=== PATIENT | female | born 1965 | race Caucasian/White ===

== ENCOUNTER → 2016-10-26 | Outpatient (CLI) | payer BC, OTHER ==
--- NOTE | 2016-10-26 16:27 | REPMRS ---
Patient History The patient states she had a clinical breast exam in 10/2016. Patient is postmenopausal and had first child at age 36. Family history of pancreatic cancer in paternal grandmother. Digital Woman Screen Mammo: October 26, 2016 - Exam #: [id number] Bilateral CC and MLO view(s) were taken. Technologist: Mercedez Huang, Technologist Prior study comparison: September 28, 2015, digital woman screen mammo performed at [facility]. July 22, 2014, digital woman screen mammo performed at [facility]. May 29, 2012, digital woman screen mammo performed at [facility]. FINDINGS: There are scattered fibroglandular densities. There has been no change in the appearance of the mammogram from the prior studies. There is a mild amount of scattered fibroglandular density which is fairly symmetric. There is no interval development of dominant mass, architectural distortion, or clustered microcalcification suggestive of malignancy. ASSESSMENT: BI-RADS/ACR category 1 mammogram. Negative. Recommendation Routine screening mammogram in 1 year (for women over age 40). This mammogram was interpreted with the aid of an FDA-approved computer-aided dectection system. Electronically Signed By: Larry Trevizo MD 10/26/16 [id number]
== END ==
LOC: M WHC 14:50
PROVIDERS: ATTEND Nurse Practitioner Family
DX: Z12.31 Encounter for screening mammogram for malignant neoplasm of breast (principal); Z78.0 Asymptomatic menopausal state

== ENCOUNTER → 2016-10-26 | Outpatient (REF) | payer BC, OTHER | LOC: M SFHCWAGY 15:30 | PROVIDERS: ATTEND Nurse Practitioner Family | DX: Z12.4 Encounter for screening for malignant neoplasm of cervix (principal) ==

== ENCOUNTER → 2017-12-11 | Outpatient (REF) | payer OTHER | LOC: M SFHCCLAY 14:02 | DX: R30.0 Dysuria (principal) ==

== ENCOUNTER → 2018-01-03 | Outpatient (CLI) | payer OTHER | LOC: M WHC 15:21 | DX: Z12.31 Encounter for screening mammogram for malignant neoplasm of breast (principal); N60.31 Fibrosclerosis of right breast; N60.32 Fibrosclerosis of left breast ==

== ENCOUNTER → 2018-06-20 | Outpatient (REF) | payer OTHER | LOC: M SFHCCLAY 11:15 | PROVIDERS: ATTEND Family Medicine | DX: J02.9 Acute pharyngitis, unspecified (principal) ==

== ENCOUNTER → 2018-11-13 | Outpatient (REF) | payer OTHER | LOC: M LAB REF 09:53 | PROVIDERS: ATTEND Physician Assistant | DX: R30.0 Dysuria (principal) ==

== ENCOUNTER → 2019-05-22 | Outpatient (CLI) | payer OTHER ==
--- NOTE | 2019-05-22 15:48 | REPMRS ---
Patient History The patient states she had a clinical breast exam in 2019. Family history of pancreatic cancer in paternal grandmother, colorectal cancer at age 101 in paternal grandfather. No Hormone Replacement Therapy 3D TOMOSYNTHESIS WAS PERFORMED. The [facility] lifetime risk for breast cancer is 11.4%. Digital Woman Screen Mammo: May 22, 2019 - Exam #: [id number] Bilateral CC and MLO view(s) were taken. Technologist: Deirdre Caldwell, Technologist Prior study comparison: January 03, 2018, bilateral digital woman screen mammo performed at [facility]. October 26, 2016, digital woman screen mammo performed at [facility]. FINDINGS: The breast tissue is heterogeneously dense. This may lower the sensitivity of mammography. There has been no change in the appearance of the mammogram from the prior studies. There is a moderate amount of residual fibroglandular tissue which is fairly symmetric. There is no interval development of dominant mass, areas of architectural distortion, or clustered microcalcification typical of malignancy. Assessment: BI-RADS/ACR category 1 mammogram. Negative Mammogram. Recommendation Routine screening mammogram in 1 year (for women over age 40). This mammogram was interpreted with the aid of an FDA-approved computer-aided dectection system. Electronically Signed By: Jaguar Jimenes MD 05/22/19 [id number]
== END ==
LOC: M WHC 13:54
PROVIDERS: ATTEND Nurse Practitioner Family
DX: Z12.4 Encounter for screening for malignant neoplasm of cervix (principal); Z12.31 Encounter for screening mammogram for malignant neoplasm of breast; R87.610 Atypical squamous cells of undetermined significance on cytologic smear of cervix (ASC-US)
CPT/HCPCS: 77063; 77067; 87624; G0123

== ENCOUNTER → 2020-11-09 | Outpatient (REF) | payer OTHER ==
[2020-11-09 11:48] LABS: APPEARANCE, URINE CLOUDY (CLEAR); BACTERIA, URINE AUTO 1+ (NEGATIVE); BILIRUBIN, URINE AUTO NEGATIVE (NEGATIVE); BLOOD, URINE BLOOD NEGATIVE (NEGATIVE); COLOR, URINE YELLOW (YELLOW); GLUCOSE, URINE (UA) AUTO NEGATIVE (NEGATIVE); KETONE, URINE AUTO NEGATIVE (NEGATIVE); LEUKOCYTE ESTERASE, URINE AUTO TRACE (NEGATIVE); MUCUS, URINE SMALL (NEGATIVE); NITRITE, URINE AUTO NEGATIVE (NEGATIVE); PROTEIN, URINE AUTO NEGATIVE (NEGATIVE); RBC, URINE AUTO 2 /HPF (0-3); SPECIFIC GRAVITY URINE AUTO 1.017 (1.002-1.035); SQUAMOUS EPITHELIAL CELL UR AU 9 /HPF (0-6); UROBILINOGEN, URINE AUTO 0.2 mg/dL (0.0-2.0); WBC, URINE AUTO 4 /HPF (0-3)
[2020-11-09 11:50] LABS: BASO # 0.1 10^3/uL (0.0-0.2); BASO % 0.9 % (0.0-1.0); EOS # 0.3 10^3/uL (0.0-0.5); EOS % 3.9 % (0.0-3.0); HEMATOCRIT 46.4 % (36.0-47.0); HEMOGLOBIN 14.6 g/dl (12.0-15.5); LYMPH # 3.1 10^3/uL (1.5-5.0); LYMPH % 47.6 % (24.0-44.0); MEAN CORPUSCULAR HEMOGLOBIN 29.3 pg (27.0-33.0); MEAN CORPUSCULAR HGB CONC 31.5 g/dl (32.0-36.5); MONO # 0.6 10^3/uL (0.0-0.8); MONO % 9.1 % (2.0-8.0); NEUTROPHILS # 2.5 10^3/uL (1.5-8.5); NEUTROPHILS % 38.2 % (36.0-66.0); PLATELET COUNT, AUTOMATED 252 10^3/uL (150-450); RED BLOOD COUNT 4.99 10^6/uL (4.00-5.40); WHITE BLOOD COUNT 6.6 10^3/uL (4.0-10.0)
[2020-11-09 12:06] LABS: ALBUMIN 4.2 GM/DL (3.2-5.2); ALT/SGPT 26 U/L (12-78); BILIRUBIN,TOTAL 0.3 MG/DL (0.2-1.0); BLOOD UREA NITROGEN 15 MG/DL (7-18); CALCIUM LEVEL 8.6 MG/DL (8.5-10.1); CARBON DIOXIDE LEVEL 27 MEQ/L (21-32); CHLORIDE LEVEL 107 MEQ/L (98-107); CHOLESTEROL LEVEL 200 MG/DL (<200); CHOLESTEROL RISK RATIO 3.125 (<5); CREATININE FOR GFR 1.01 MG/DL (0.55-1.30); FREE T4 0.96 NG/DL (0.76-1.46); GLOMERULAR FILTRATION RATE > 60.0 (>51); GLUCOSE, FASTING 96 MG/DL (70-100); HDL CHOLESTEROL 64 MG/DL (>40); LDL CHOLESTEROL 114 MG/DL (<100); NON-HDL-C 136 MG/DL; POTASSIUM SERUM 4.1 MEQ/L (3.5-5.1); SODIUM LEVEL 140 MEQ/L (136-145); TOTAL PROTEIN 7.9 GM/DL (6.4-8.2); TRIGLYCERIDES LEVEL 110 MG/DL (<150)
== END ==
LOC: M SFHCCLAY 07:08
PROVIDERS: ATTEND Nurse Practitioner Family
DX: R82.998 Other abnormal findings in urine (principal); R53.83 Other fatigue; Z12.11 Encounter for screening for malignant neoplasm of colon; Z13.220 Encounter for screening for lipoid disorders

== ENCOUNTER → 2020-12-21 | Outpatient (CLI) | payer OTHER ==
--- NOTE | 2020-12-21 16:56 | REPMRS ---
Patient History The patient states she had a clinical breast exam in 11/2020. Family history of pancreatic cancer in paternal grandmother, colorectal cancer at age 101 in paternal grandfather. No Hormone Replacement Therapy Tomosynthesis is performed. [place] breast density is b. [facility] 10.9%. Patient states no breast complaints today. Patient has signed MRS History Sheet. Digital Woman Screen Mammo: December 21, 2020 - Exam #: [id number] Bilateral CC and MLO view(s) were taken. Technologist: Mercedez Huang, Technologist Prior study comparison: May 22, 2019, bilateral digital woman screen mammo performed at [facility]. January 03, 2018, bilateral digital woman screen mammo performed at [facility]. FINDINGS: There are scattered fibroglandular densities. There has been no change in the appearance of the mammogram from the prior studies. There is a mild amount of residual fibroglandular tissue which is fairly symmetric. There is no interval development of dominant mass, architectural distortion, or clustered microcalcification suggestive of malignancy. Assessment: BI-RADS/ACR category 1 mammogram. Negative Mammogram. Recommendation Routine screening mammogram in 1 year (for women over age 40). This mammogram was interpreted with the aid of an FDA-approved computer-aided dectection system. Electronically Signed By: Jaguar Jimenes MD 12/21/20 [id number]
== END ==
LOC: M WHC 15:46
PROVIDERS: ATTEND Nurse Practitioner Women's Health
DX: Z12.31 Encounter for screening mammogram for malignant neoplasm of breast (principal); Z80.8 Family history of malignant neoplasm of other organs or systems

== ENCOUNTER → 2020-12-21 | Outpatient (REF) | payer OTHER | LOC: M SFHCWAGY 10:12 | PROVIDERS: ATTEND Nurse Practitioner Women's Health | DX: Z12.4 Encounter for screening for malignant neoplasm of cervix (principal); Z77.9 Other contact with and (suspected) exposures hazardous to health | CPT/HCPCS: 87624; G0123 ==

== ENCOUNTER → 2021-02-09 | Outpatient (CLI) | payer OTHER ==
[~2021-02-09] MED LIST: LATA0.0015
== END ==
LOC: M LABSMTC 10:47
PROVIDERS: ATTEND Anesthesiology
DX: Z01.812 Encounter for preprocedural laboratory examination (principal); Z11.52 Encounter for screening for COVID-19

== ENCOUNTER 2021-02-14 08:46 | Day surgery (SDC) | payer OTHER ==
[~2021-02-14] VITALS: Ht 167.6 cm; Wt 63.2 kg
[~2021-02-14 08:46] MED LIST changes: +NS 1,000 ML IV ONE
[2021-02-14] MEDS ORDERED: LIDOCAINE 2% 100MG/5ML SDV (FOR ANES.) As Ordered ONE (08:49)
--- OUTSIDE RECORDS SUMMARY | 2021-02-14 08:49 | CCD | Continuity of Care Document ---
Author Author Jennifer HENLEY Organization Unknown Address [address] [place] [address], [address] [place] [address] Phone [phone] Care Team Providers Care Handle Maker Name Role Phone JeromedavidJulia AUTM Problems Description No Active Problems Social History Type Date Description Comments Sex Unknown ETOH Use 1-2 A Week Tobacco Use Start: Unknown Light tobacco smoker (10 or fewe r cigarettes/day) 4-5 cigs daily Allergies, Adverse Reactions, Alerts Active Allergies Criticality Reaction | Severity Comments Date Amoxicillin Unable to assess criticality 01/03/2021 Medications Active Medications SIG Qnty Indications Ordering Provide r Date Sutab [id number] Tablets take tablets as directed per doctor for bowel prep. 1kit Z12.11 Kaden goins MD 01/03/[address] take 4 tabs by mouth prior to procedure per instructions. 4tabs Z12.11 Kaden Joseph MD 01/03/2021 Latanoprost 0.005% Solution instill one drop in each eye at night time. Unknown Immunizations Description No Information Available Vital Signs Date Vital Result Comment 01/03/2021 3:33pm BP Systolic 104 mmHg BP Diastolic 72 mmHg Height 66 inches 5'6" Weight 142.00 lb BMI (Body Mass Index) 22.9 kg/m2 [place] Body Weight 130 lb Weight 64.411 kg BSA (Body Surface Area) 1.73 m2 Results Description No Information Available Procedures Description No Information Available Medical Devices Description No Information Available Encounters Description No Information Available Assessments Date Code Description Provider 01/03/2021 Z12.11 Encounter for screening for ida gnant neoplasm of colon PEPITO Roach Plan of Treatment 01/03/2021 - PEPITO Roach* Z12.11 Encounter for screening for malignant neoplasm of colon * * New Medication:* Sutab [id number] mg * Dulcolax 5 mg * New Orders:* Colonoscopy, Ordered: 01/03/21 * Comments:* Will arrange for colonoscopy. Reviewed risks and benefits of the procedure, as well as other options, with the patient. Bowel prep procedure was discussed with patient, as well as risks and side effects associated with the bowel prep. Patient verbalized understanding of all of the above and is in agreement to proceed. Patient will seek medical attention for any acute changes. Will monitor. * Follow up:* As scheduled, sooner if needed. Functional Status Description No Information Available Mental Status Description No Information Available Referrals Refer to Reason for Referral Status Appt Date Augustin Ramirez M.D. COLO SCREENING Closed 01/03 [facility] [address] [facility], [address] [place] [address] [phone]
--- OUTSIDE RECORDS SUMMARY | 2021-02-14 08:49 | CCD ---
Author Author [facility] Organization [facility] Address Unknown Phone Unavailable Care Team Providers Care Baby Sitter Name Role Phone YAZMIN WHEELER PA Unavailable Unavailable SUMMER, YAZMIN PA Unavailable Unavailable SUMMER, YAZMIN PA Unavailable Unavailable SUMMER, YAZMIN PA Unavailable Unavailable SUMMER, YAZMIN PA Unavailable Unavailable SUMMER, YAZMIN PA Unavailable Unavailable SUMMER, YAZMIN PA Unavailable Unavailable SUMMER, YAZMIN PA Unavailable Unavailable SUMMER, YAZMIN PA Unavailable Unavailable SUMMER, YAZMIN PA Unavailable Unavailable SUMMER, YAZMIN PA Unavailable Unavailable SUMMER, YAZMIN PA Unavailable Unavailable SUMMER, YAZMIN PA Unavailable Unavailable SUMMER, YAZMIN PA Unavailable Unavailable SUMMER, YAZMIN PA Unavailable Unavailable SUMMER, YAZMIN PA Unavailable Unavailable SUMMER, YAZMIN PA Unavailable Unavailable SUMMER, YAZMIN PA Unavailable Unavailable SUMMER, YAZMIN PA Unavailable Unavailable SUMMER, YAZMIN PA Unavailable Unavailable SUMMER, YAZMIN PA Unavailable Unavailable SUMMER, YAZMIN PA Unavailable Unavailable SUMMER, YAZMIN PA Unavailable Unavailable SUMMER, YAZMIN PA Unavailable Unavailable SUMMER, YAZMIN PA Unavailable Unavailable SUMMER, YAZMIN PA Unavailable Unavailable SUMMER, YAZMIN PA Unavailable Unavailable SUMMER, YAZMIN PA Unavailable Unavailable SUMMER, YAZMIN PA Unavailable Unavailable SUMMER, YAZMIN PA Unavailable Unavailable SUMMER, YAZMIN PA Unavailable Unavailable SUMMER, YZAMIN PA Unavailable Unavailable SUMMER, YAZMIN PA Unavailable Unavailable SUMMER, YAZMIN PA Unavailable Unavailable SUMMER, YAZMIN PA Unavailable Unavailable SUMMER, YAZMIN PA Unavailable Unavailable Guerrero Mitchell, Celena Alfonso MD, FACS Unavailable Unavailable Guerrero Mitchell, Celena Alfonso MD, FACS Unavailable Unavailable Guerrero Mitchell, Celena Alfonso MD, FACS Unavailable Unavailable Guerrero Mitchell, Celena Alfonso MD, FACS Unavailable Unavailable Guerrero Mitchell, Celena Alfonso MD, FACS Unavailable Unavailable Guerrero Mitchell, Celena Alfonso MD, FACS Unavailable Unavailable Guerrero Mitchell, Celena Alfonso MD, FACS Unavailable Unavailable Guerrero Mitchell, Celena Alfonso MD, FACS Unavailable Unavailable Guerrero Mitchell, Celena Alfonso MD, FACS Unavailable Unavailable Guerrero Mitchell, Celena Alfonso MD, FACS Unavailable Unavailable Guerrero Mitchell, Celena Alfonso MD, FACS Unavailable Unavailable Guerrero Mitchell, Celena Alfonso MD, FACS Unavailable Unavailable Guerrero Mitchell, Celena Alfonso MD, FACS Unavailable Unavailable Guerrero Mitchell, Celena Alfonso MD, FACS Unavailable Unavailable Guerrero Mitchell, Celena Alfonso MD, FACS Unavailable Unavailable Guerrero Mitchell, Celena Alfonso MD, FACS Unavailable Unavailable Guerrero Mitchell, Celena Alfonso MD, FACS Unavailable Unavailable Guerrero Mitchell, Celena Alfonso MD, FACS Unavailable Unavailable Guerrero Mitchell, Celena Alfonso MD, FACS Unavailable Unavailable Guerrero Mitchell, Celena Alfonso MD, FACS Unavailable Unavailable Guerrero Mitchell, Celena Alfonso MD, FACS Unavailable Unavailable Guerrero Mitchell, Celena Alfonso MD, FACS Unavailable Unavailable Guerrero Mitchell, Celena Alfonso MD, FACS Unavailable Unavailable Guerrero Mitchell, Celena Alfonso MD, FACS Unavailable Unavailable Guerrero Mitchell, Celena Alfonso MD, FACS Unavailable Unavailable Guerrero Mitchell, Celena Alfonso MD, FACS Unavailable Unavailable Guerrero Mitchell, Celena Alfonso MD, FACS Unavailable Unavailable Guerrero Mitchell, Celena Alfonso MD, FACS Unavailable Unavailable Guerrero Mitchell, Celena Alfonso MD, FACS Unavailable Unavailable Guerrero Mitchell, Celena Alfonso MD, FACS Unavailable Unavailable Guerrero Mitchell, Celena Alfonso MD, FACS Unavailable Unavailable Guerrero Mitchell, Celena Alfonso MD, FACS Unavailable Unavailable Guerrero Mitchell, Celena Alfonso MD, FACS Unavailable Unavailable Guerrero Mitchell, Celena Alfonso MD, FACS Unavailable Unavailable Guerrero Mitchell, Celena Alfonso MD, FACS Unavailable Unavailable Guerrero Mitchell, Celena Alfonso MD, FACS Unavailable Unavailable Guerrero Mitchell, Celena Alfonso MD, FACS Unavailable Unavailable Guerrero Mitchell, Celena Alfonso MD, FACS Unavailable Unavailable Celena Gomez MD, FACS Unavailable Unavailable Re-disclosure Warning The records that you are about to access may contain information from federally-assisted alcohol or drug abuse programs. If such information is present, then the following federally mandated warning applies: This information has been disclosed to you from records protected by federal confidentiality rules (42 CFR part 2). The federal rules prohibit you from making any further disclosure of this information unless further disclosure is expressly permitted by the written consent of the person to whom it pertains or as otherwise permitted by 42 CFR part 2. A general authorization for the release of medical or other information is NOT sufficient for this purpose. The Federal rules restrict any use of the information to criminally investigate or prosecute any alcohol or drug abuse patient.The records that you are about to access may contain highly sensitive health information, the redisclosure of which is protected by Article 27-F of the [facility] Public Health law. If you continue you may have access to information: Regarding HIV / AIDS; Provided by facilities licensed or operated by the [facility] Office of Mental Health; or Provided by the [facility] Office for People With Developmental Disabilities. If such information is present, then the following [facility] mandated warning applies: This information has been disclosed to you from confidential records which are protected by state law. State law prohibits you from making any further disclosure of this information without the specific written consent of the person to whom it pertains, or as otherwise permitted by law. Any unauthorized further disclosure in violation of state law may result in a fine or mcfp sentence or both. A general authorization for the release of medical or other information is NOT sufficient authorization for further disc losure. Family History Family Member Name Family Member Gender Family Member Status Date o f Status Description Data Source(s) Unknown Male Problem MEDENT ([facility]) Unknown Unknown Problem MEDENT ([facility]) Encounters Encounter Providers Location Date Indications Data Source(s ) [place] [address] [facility] [facility] [address] 12/21/2020 12:00:00 AM EDT eCW1 (Replaced by [facility]) [place] [address] [facility] [facility] [address] 11/09/2020 12:00:00 AM EDT eCW1 (Replaced by [facility]) [place] [address] [facility] [facility] [address] 11/09/2020 12:00:00 AM EDT eCW1 (Replaced by [facility]) [place] [address] [facility] [address] 11/04/2020 12:00:00 AM EDT eCW1 (Replaced by [facility]) Outpatient Attender: YAZMIN hernandez 08/26/2020 04:50:00 PM EDT MEDENT ([facility]) Outpatient<td ID="encounterTypeDescripti onID2">1 Year Follow-Up & Testing</td><td>Kaden Alonso MD, FACS</td><td>Kaden Alonso MD [facility]</td><td>06/21/2020</td><td>12:18PM</td><td>1:00PM</td><td><content ID="encounterDiagnosisID2-0">Dry Eye Syndrome Both Eyes</content>, <content ID="encounterDiagnosisID2-1">Borderline Glaucoma Open Angle with Borderline Findings Both Eyes</content>, <content ID="encounterDiagnosisID2-2">Vitreous Disorders Degeneration</content></td> Attender: Kaden Mitchell MD, FACS Kaden Alonso MD [facility] 06/21/2020 12:18:00 PM EST - 06/21/2020 01:00:00 PM ES T Vitreous Disorders DegenerationBorderline Glaucoma Open Angle with Borderline Findings Both EyesDry Eye Syndrome Both Eyes NAVI (Kaden Mitchell MD [facility]) Vitreous Disorders Degeneration Borderline Glaucoma Open Angle with Bord brianne Findings Both Eyes Dry Eye Syndrome Both Eyes Outpatient<td ID="encounterTypeDescripti onID1">OCT DISC</td><td></td><td>Kaden Alonso MD [facility]</td><td>06/21/2020</td><td>12:18PM</td><td>1:01PM</td><td></td> Kaden Alonso MD [facility] 06/21/2020 12:18:00 PM EST - 06/21/2020 01:01:00 PM EST NAVI (Kaden Mitchell MD [facility]) Outpatient<td ID="encounterTypeDescripti onID0">VISUAL FIELD 24- 2</td><td></td><td>Kaden Alonso MD [facility]</td><td>06/21/2020</td><td>12:18PM</td><td>1:00PM</td><td></td> Kaden Alonso MD [facility] 06/21/2020 12:18:00 PM EST - 06/21/2020 01:00:00 PM EST NAVI (Kaden Mitchell MD [facility]) Medications Medication Brand Name Start Date Product Form Dose Route Admi nistrative Instructions Pharmacy Instructions Status Indications Reaction Description Data Source(s) 1.479-0.188- 0.225 gram 01/24/2021 12:00:00 AM EDT tablet 24 TAKE DIRECTED PER DOCTOR FOR BOWEL PREP TAKE DIRECTED PER DOCTOR FOR BOWEL PREP SOLD: 01/24/2021 [facility] Bisacodyl 5 MG Delayed Release Oral Tablet [Dulcolax] Dulcol ax 01/03/2021 12:00:00 AM EDT ORAL active M EDENT ([facility], ) Sutab Sutab 01/03/2021 12:00:00 AM EDT active MEDENT ([facility], ) 300 mg 08/26/2020 12:00:00 AM EDT capsule 14 TAKE ONE CAPSULE BY MOUTH TWO TIMES A DAY FOR 7 DAYS TAKE ONE CAPSULE BY MOUTH TWO TIMES A DAY FOR 7 DAYS SOLD: 08/26/2020 [facility] cefdinir 300 MG Oral Capsule Cefdinir 08/26/2020 12:00:00 AM EDT ORAL active MEDENT ([facility]) latanoprost 0.05 MG/ML Ophthalmic Soluti on Latanoprost 0.005% Ophthalmic Solution Latanoprost 0.005% Ophthalmic Solution 06/21/2020 12:00:00 AM EST 1 active latanoprost 0.05 MG/ ML Ophthalmic Solution NAVI (Kaden Mitchell MD [facility]) 0.005 % 06/21/2020 12:00:00 AM EST drops 7 INSTILL 1 DROP IN EACH EYE AT NIGHT TIME INSTILL 1 DROP IN EACH EYE AT NIGHT TIME SOLD: 06/29/2020 [facility] latanoprost 0.05 MG/ML Ophthalmic Soluti on Latanoprost 0.005% Ophthalmic Solution Latanoprost 0.005% Ophthalmic Solution 02/17/2019 12:00:00 AM EDT 1 aborted latanoprost 0.05 MG/ ML Ophthalmic Solution NAVI (Kaden Mitchell MD [facility]) Insurance Providers Payer name Policy type / Coverage type Policy ID Covered libertarian ID Covered libertarian's relationship to miller Policy Miller Plan Information [place] P[place] 302/307 [id number] SP [id number] UMR [employer] [id number] HU2 [id number] Umr (pr) Commercial [id number] UMR O [id number] S [id number] Employers Insurance [facility] Other 0 [id number] Self 0 Umr/[facility] Health Maintenance Organization (HMO) [id number] Family Dependent [id number] ANSI-Commercial [id number] ANSI-Commercial [id number] ANSI-Commercial [id number] ANSI-Commercial [id number] ANSI-Commercial [id number] ANSI-Commercial [id number] ANSI-Commercial [id number] ANSI-Commercial [id number] ANSI-Commercial [id number] ANSI-Commercial [id number] ANSI-Commercial [id number] ANSI-Commercial [id number] ANSI-Commercial [id number] ANSI-Commercial [id number] ANSI-Commercial [id number] ANSI-Commercial [id number] ANSI-Commercial [id number] ANSI-Commercial [id number] ANSI-Commercial [id number] ANSI-Commercial [id number] ANSI-Commercial [id number] ANSI-Commercial [id number] ANSI-Commercial [id number] [facility] [id number] 2 [id number] [place] P[place] 302/307 [id number] SP [id number] [employer] BLUE SHIELD [id number] SP [id number] [place] PPO 302/307 [id number] SP [id number] [place] PPO 302/307 [id number] SP [id number] HMO BLUE [id number] SP [id number] EXCELLUS BCBS B [id number] S [id number] BLUE CROSS OTHER 1 [id number] [id number] UMR [employer] [id number] HU2 [id number] Employers Insurance [employer] [place] Other 0 [id number] Self 0 UMR [id number] SPO [id number] Problems, Conditions, and Diagnoses Code Display Name Description Problem Type Effective Dates Data Source(s) F17.200 [id number] Tobacco use disorder Problem 12/21/2020 12:0 0:00 AM EDT eCW1 ([facility]ly [facility]) Surgeries/Procedures Procedure Description Date Indications Data Source(s) Comprehensive eye exam established patient (25) Compre hensive eye exam established patient (25) 06/21/2020 12:00:00 AM ECHO MCELROY (Kaden Mitchell MD [facility]) Visual Field Visual Field 06/21/2020 12:00:00 AM EST Massiel BLOOM (Kaden Mitchell MD [facility]) Scodi, optic nerve with interpretation and report Scod i, optic nerve with interpretation and report 06/21/2020 12:00:00 AM EST KELLIE Y (Kaden Mitchell MD [facility]) Results ID Date Data Source [id number] 02/09/2021 11:00:00 AM EDT [facility] Name Value Range Interpretation Code Description Data Tiffany rce(s) Supporting Document(s) SARS-CoV-2 (COVID-19) RNA [Presence] in Respiratory specimen by KIRILL with probe detection Not Detected [facility] This lab was ordered by [facility] and reported by [employer] ID Date Data Source WWBC DIGITAL / RUTH BILATERAL MAMMO SCREENING (Ultraso und if indicated) 12/21/2020 12:00:00 AM EDT eCW1 ([facility]) Name Value Range Interpretation Code Description Data Tiffany rce(s) Supporting Document(s) WWBC DIGITAL / RUTH BILAT ERAL MAMMO SCREENING (Ultrasound if indicated) eC ([facility]) ID Date Data Source UA URINALYSIS 11/09/2020 12:00:00 AM EDT eCW1 ([facility]) Name Value Range Interpretation Code Description Data Tiffany rce(s) Supporting Document(s) UA URINALYSIS eCW1 (Formerly [facility]) Procedure Social History Code Duration Value Status Description Data Source(s ) Smoking 12/21/2020 12:00:00 AM EDT Current Smoker completed Curre nt Smoker eCW1 ([facility]ly [facility]) Smoking 11/04/2020 12:00:00 AM EDT Current Smoker completed Curre nt Smoker eCW1 ([facility]) Smoking 11/04/2020 12:00:00 AM EDT Current Smoker completed Curre nt Smoker eCW1 ([facility]) Smoking 11/04/2020 12:00:00 AM EDT Current Smoker completed Curre nt Smoker eCW1 ([facility]) Vital Signs ID Date Data Source UNK Name Value Range Interpretation Code Description Data Source(s) Systolic blood pressure 104 mm[Hg] 104 mm[Hg] M [facility] ([facility]) Amidon body weight 130 [lb_av] 130 [lb_av] [facility] Body weight 64.411 kg 64.411 kg [facility] ([facility]) Body surface area Derived from formula 1.73 m2 1.73 m2 [facility] ([facility]) Diastolic blood pressure 72 mm[Hg] 72 mm[Hg] [facility] ([facility]) Body height 66 [in_i] 66 [in_i] [facility] ([facility]) 5'6" Body weight 142.00 [lb_av] 142.00 [lb_av] MEDEN T ([facility]) Body mass index (BMI) [Ratio] 22.9 kg/m2 22.9 k g/m2 [facility] ([facility]) Body weight 143 [lb_av] 143 [lb_av] W1 ([facility]) Body mass index (BMI) [Ratio] 23.79 kg/m2 23.79 kg/m2 [facility] ([facility]) Systolic blood pressure 132 mm[Hg] 132 mm[Hg] e CW1 ([facility]) Diastolic blood pressure 76 mm[Hg] 76 mm[Hg] eCW1 ([facility]) Body height 65 [in_i] 65 [in_i] eCW1 ([facility]) Body weight 141 [lb_av] 141 [lb_av] eCW1 ([facility]) Body height [in_i] eCW1 ([facility]) Body mass index (BMI) [Ratio] 23.10 kg/m2 23.10 kg/m2 eCW1 ([facility]) Heart rate 65 /min 65 /min eCW1 ([facility]) Respiratory rate 18 /min 18 /min eCW1 ([facility]) Body temperature 97.8 [degF] 97.8 [degF] eCW1 ( [facility]) Systolic blood pressure 114 mm[Hg] 114 mm[Hg] e CW1 ([facility]) Diastolic blood pressure 72 mm[Hg] 72 mm[Hg] eCW1 ([facility]) Systolic blood pressure 136 mm[Hg] 136 mm[Hg] M EDENT ([facility], [facility]) Diastolic blood pressure 86 mm[Hg] 86 mm[Hg] MEDENT ([facility], [facility]) Heart rate 79 /min 79 /min MEDENT ([facility], [facility]) Respiratory rate 16 /min 16 /min MEDENT ( [facility], [facility]) Oxygen saturation in Arterial blood by Pulse oximetry 98 % 98 % MEDENT ([facility], [facility]) Body temperature 97.3 [degF] 97.3 [degF] MEDENT ([facility], [facility]) Body weight 135.00 [lb_av] 135.00 [lb_av] MEDEN T ([facility], [facility]) Body height 66 [in_i] 66 [in_i] MEDENT ([facility], [facility]) 5'6" Body mass index (BMI) [Ratio] 21.8 kg/m2 21.8 k g/m2 MEDENT ([facility], [facility]) Patient Treatment Plan of Care Planned Activity Planned Date Details Description Data Source (s) latanoprost 0.05 MG/ML Ophthalmic Solution 06/21/2020 12:00:00 AM E NAVI (Kaden Mitchell MD [facility]) latanoprost 0.05 MG/ML Ophthalmic Solution 02/17/2019 12:00:00 AM E NAVI (Kaden Mitchell MD [facility])
--- OUTSIDE RECORDS SUMMARY | 2021-02-14 08:49 | CCD | Continuity of Care Document ---
Author Author Jennifer HENLEY Organization Unknown Address [address] [place] [address], [address] [place] [address] Phone [phone] Care Team Providers Care Grants Specialist Name Role Phone JeromedavidJulia AUTM [phone] Problems Description No Active Problems Social History Type Date Description Comments Sex Unknown ETOH Use 1-2 A Week Tobacco Use Start: Unknown Light tobacco smoker (10 or fewe r cigarettes/day) 4-5 cigs daily Allergies, Adverse Reactions, Alerts Active Allergies Criticality Reaction | Severity Comments Date Amoxicillin Unable to assess criticality 01/03/2021 Medications Active Medications SIG Qnty Indications Ordering Provide r Date Sutab [id number] Tablets take tablets as directed per doctor [...] lb BMI (Body Mass Index) 22.9 kg/m2 [place] Body Weight 130 lb Weight 64.411 kg [...] of colon * * New Medication:* Sutab 6815-765-718 mg * Dulcolax 5 mg * New [...] Augustin Ramirez M.D. COLO SCREENING Closed 01/03 [facility] [address] [facility], [address] [place] [address] [phone]
--- OUTSIDE RECORDS SUMMARY | 2021-02-14 08:49 | CCD ---
Author Author [facility] Organization [facility] Address Unknown Phone Unavailable Care Team Providers Care Plumbing Assembler Name Role Phone Lu Lacy Unavailable PROBLEMS Type Condition ICD9-CM Code [id number] Code Onset Dates Condition S tatus W/U Status Risk SNOMED Code Notes Problem Lethargy R53.83 Active confirmed 693759249 Problem Post-menopause bleeding N95.0 Active confirmed 60937399 Problem Symptomatic menopausal or female climacteric states N95.1 Active confirmed 04156081 Problem Smoker F17.200 Active confirmed 54254466 Problem Abdominal tenderness of left lower quadrant, rebound tenderness presence not specified R10.814 Active confirmed 561055404 Problem Tobacco use disorder F17.200 Active confirmed 067846916 Problem Irritability R45.4 Active confirmed 8138950 7 Problem Menopausal symptom N95.1 Active confirmed 2 7709254 Problem 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 Active confirmed 60078480 Problem Anxiety F41.9 Active confirmed 98287886 ALLERGIES Allergen (clinical drug ingredient) Drug/Non Drug Allergy do cumented on EMR Reaction Allergy Type Onset Date Status Penicillin (For Allergies Use Only) Yeast infections Drug Allergy Active Amoxicillin Nausea Drug Allergy Active ENCOUNTERS from 1965 to 2020-12-22 Encounter Location Date Provider Diagnosis [facility] [address] [place] [address] [place] [address] Nov, Lu Lacy Routine gynecologica l examination Z01.419 ; Screening for malignant neoplasm of cervix Z12.4 ; Breast cancer screening by mammogram Z12.31 and Tobacco use disorder F17.200 IMMUNIZATIONS Vaccine Route Administration Date Status Influenza 18 yrs & older Flublok IM Intramuscular Jan 30, 2019 Administered Influenza 6mo & up Fluzone IM Intramuscular Feb 27, 2017 Admi nistered Influenza 6mo & up Fluzone IM Intramuscular Mar 08, 2016 Admi nistered Influenza 6mo & up Fluzone IM Intramuscular Feb 05, 2015 Admi nistered Influenza 6mo & up Fluzone Unknown Feb 05, 2014 Admin istered Influenza 6mo & up Fluzone IM Intramuscular Feb 06, 2013 Admi nistered Influenza 6mo & up Fluzone IM Intramuscular Feb 14, 2012 Admi nistered Influenza 6mo & up Fluzone IM Intramuscular Feb 15, 2011 Admi nistered Influenza 6mo & up Fluzone IM Jan 19, 2010 Admin istered SOCIAL HISTORY Tobacco Use: Social History Observation Description Date Details (start date - stop date) Current Smoker Sex Assigned At : Social History Observation Description Sex Assigned At Unknown Audit Question Answer Notes Total Score: 0 Interpretation: Alcohol Education Language: Question Answer Notes Languages spoken: Turkmen Druze: Question Answer Notes Druze 21 Restorationism Sexual Hx: Question Answer Notes Had sex in the last 12 months (vaginal, oral, or anal)? Yes LMP: post menopause Have you ever had an STD? Yes with Men only Use protection? No Other? Yes Herpes? Yes Syphilis? No GC? No Chlamydia? No Drug and Alcohol Question Answer Notes Total Score: 0 Interpretation: No problems reported Alcohol Screening: Question Answer Notes Did you have a drink containing alcohol in the past year? Ye s Points 3 Interpretation Positive How often did you have six or more drinks on one occas ion in the past year? Never (0 points) How many drinks did you have on a typica l day when you were drinking in the past year? 3 or 4 (1 point) How often did you have a drink containing alcohol in t he past year? Two to four times a month (2 points) BMI Care Goal Follow-Up Question Answer Notes Above Normal BMI Follow-Up Dietary management educatio n, guidance, and counseling Tobacco Use: Question Answer Notes Are you a: current smoker on and off Patient counseled on the dangers of tobacco use and urged to quit: 11/04/2020 How many cigarettes a day do you smoke? 5 or less Are you interested in quitting? Thinking about quitting Counseled the patient on smoking cessation, education provid ed 11/04/2020 REASON FOR REFERRAL No Information VITAL SIGNS Weight 143 lbs Nov, Height 65 in Nov, BMI 23.79 kg/m2 Nov, Blood pressure systolic 132 mm Hg Nov, Blood pressure diastolic 76 mm Hg Nov, MEDICATIONS Medication SIG (Take, Route, Frequency, Duration) Notes Start Da te End Date Status Estroven + Energy Max Strength - as directed Orally Daily for 30 day(s) Apr, Not-Taking Tamiflu 75 MG 1 capsule Orally Daily for 10 day(s) May, Not-Taking Valtrex 500 MG 1 tablet Orally twice daily as needed Active Latanoprost 0.005 % 1 drop into affected eye in the evening Ophthalmic Once a day Dr. Alonso Active PROCEDURES No Information RESULTS Component Value Reference Range WWBC DIGITAL / RUTH BILATERAL MAMMO SCRE ENING (Ultrasound if indicated) Reviewed date:12/21/2020 17:04:11 Interpretation:Negative Performing Lab:[facility],[address]], ,[place] [address] REASON FOR VISIT ANNUAL/MAMMO MEDICAL (GENERAL) HISTORY Type Description Date Medical History Anxiety Medical History Herpes simplex virus : type 2 Medical History Eczema Medical History L4-5 disc herniation Medical History Scoliosis Medical History 5th metatarsal fracture right foot Surgical History C.section x1 2001 Surgical History Cryosurgery for abn. pap 1994 Surgical History Colposcopy: [facility] 1996 Hospitalization History Childbirth Goals Section No Information Health Concerns No Information MEDICAL EQUIPMENT No Information MENTAL STATUS No Information FUNCTIONAL STATUS No Information ASSESSMENTS Encounter Date Diagnosis Assessment Notes Treatment Notes Treatm ent Clinical Notes Nov, Routine gynecological examination (ICD-10 - Z01. 419) Pt to report any episodes of pmb or pelvic pain. Advise regular physical activity including weight bearing exercise most days of the week. Reviewed calcium rich foods. HCRA completed and reviewed Nov, Screening for malignant neoplasm of cervix (ICD- 10 - Z12.4) Reviewed ASCCP guidelines for pap screening and frequency, reviewed utility of HPV testing as well and when next pap will be due Nov, Breast cancer screening by mammogram (ICD-10 - Z 12.31) Reviewed screening intervals with mammography, recommend annual screening until age 75. Reviewed breast awareness, know what is normal for you so that you can detect any changes in the breasts, check breasts regularly, in a routine that you are comfortable with. Nov, Tobacco use disorder (ICD-10 - F17.200) cessation advised PLAN OF TREATMENT Treatment Notes Assessment Notes Clinical Notes Routine gynecological examination Pt to report any episodes of pmb or pelvic pain. Advise regular physical activity including weight bearing exercise most days of the week. Reviewed calcium rich foods.HCRA completed and reviewed Screening for malignant neoplasm of cervix Reviewed ASCCP guidelines for pap screening and frequency, reviewed utility of HPV testing as well and when next pap will be due Breast cancer screening by mammogram Rev iewed screening intervals with mammography, recommend annual screening until age 75. Reviewed breast awareness, know what is normal for you so that you can detect any changes in the breasts, check breasts regularly, in a routine that you are comfortable with. Tobacco use disorder cessation advised Treatment Notes Test Name Order Date PAP REQUEST FOR SERVICE 2020-12-21 Next Appt Details 1 Year Reason:- Annual follow up/mammo Provider Name:Julia Holland, 18 04:00:00 PM, [address] , , [place], [address], Follow Up:1 Year- Annual follow up/mammo Insurance Providers Payer Name Payer Address Payer Phone Insured Name Patient Relati onship to Insured Coverage Start Date Coverage End Date [facility] [id number] [facility] [id number] SARAH RUVALCABA [id number]
--- OUTSIDE RECORDS SUMMARY | 2021-02-14 08:49 | CCD | Continuity of Care Document ---
Author Author Jennifer HENLEY Organization Unknown Address [address] [place] [address], [address] [place] [address] Phone [phone] Care Team Providers Care Clay Stain Mixer Name Role Phone JeromedavidJulia AUTM Problems Description [...] Qnty Indications Ordering Provide r Date Sutab [id number] Tablets take tablets as directed per doctor [...] lb BMI (Body Mass Index) 22.9 kg/m2 [place] Body Weight 130 lb Weight 64.411 kg [...] of colon * * New Medication:* Sutab [id number] mg * Dulcolax 5 mg * New [...] Augustin Ramirez M.D. COLO SCREENING Closed 01/03 [facility] [address] [facility], [address] [place] [address] [phone]
--- OUTSIDE RECORDS SUMMARY | 2021-02-14 08:49 | CCD | Continuity of Care Document ---
Author Author Jennifer HENLEY Organization Unknown Address [address] [place] [address], [address] [place] [address] Phone [phone] Care Team Providers Care Miter Operator Name Role Phone JeromedavidJulia AUTM [phone] Problems Description No Active Problems Social History Type Date Description Comments Sex Unknown ETOH Use 1-2 A Week Tobacco Use Start: Unknown Light tobacco smoker (10 or fewe r cigarettes/day) 4-5 cigs daily Allergies, Adverse Reactions, Alerts Active Allergies Criticality Reaction | Severity Comments Date Amoxicillin Unable to assess criticality 01/03/2021 Medications Active Medications SIG Qnty Indications Ordering Provide r Date Sutab [id number] Tablets take tablets as directed per doctor [...] lb BMI (Body Mass Index) 22.9 kg/m2 [place] Body Weight 130 lb Weight 64.411 kg [...] of colon * * New Medication:* Sutab [id number] mg * Dulcolax 5 mg * New [...] Augustin Ramirez M.D. COLO SCREENING Closed 01/03 [facility] [address] [facility], [address] [place] [address] [phone]
[2021-02-14] MEDS ORDERED: propofoL 200 MG/20 ML VIAL As Ordered ONE (08:50)
[2021-02-14] MEDS ORDERED: PHENYLephrine 500MCG 5ML (100MCG/ML) SYRINGE As Ordered ONE (11:18)
--- NOTE | 2021-02-14 11:34 | ROOR ---
Patient Name: Jennifer Howard Procedure Date: 02/14/2021 10:51 AM Date of : 1965 Age: 55 Room: [facility] Gender: Female Note Status: Finalized Procedure: Colonoscopy Indications: Screening for colorectal malignant neoplasm Providers: Augustin Ramirez MD Referring MD: Julia Holland NP Requesting Provider: Medicines: Monitored Anesthesia Care Complications: No immediate complications. Procedure: Pre-Anesthesia Assessment: - Prior to the procedure, a History and Physical was performed, and patient medications and allergies were reviewed. The patient is competent. The risks and benefits of the procedure and the sedation options and risks were discussed with the patient. All questions were answered and informed consent was obtained. Patient identification and proposed procedure were verified by the physician, the nurse and the anesthesiologist in the procedure room. Mental Status Examination: alert and oriented. Airway Examination: normal oropharyngeal airway and neck mobility. Respiratory Examination: clear to auscultation. CV Examination: normal. Prophylactic Antibiotics: The patient does not require prophylactic antibiotics. Prior Anticoagulants: The patient has taken no previous anticoagulant or antiplatelet agents. ASA Grade Assessment: II - A patient with mild systemic disease. After reviewing the risks and benefits, the patient was deemed in satisfactory condition to undergo the procedure. The anesthesia plan was to use monitored anesthesia care (MAC). Immediately prior to administration of medications, the patient was re-assessed for adequacy to receive sedatives. The heart rate, respiratory rate, oxygen saturations, blood pressure, adequacy of pulmonary ventilation, and response to care were monitored throughout the procedure. The physical status of the patient was re-assessed after the procedure. The Colonoscope was introduced through the anus and advanced to the terminal ileum, with identification of the appendiceal orifice and IC valve. The colonoscopy was performed without difficulty. The patient tolerated the procedure well. The quality of the bowel preparation was good. The terminal ileum, ileocecal valve, appendiceal orifice, and rectum were photographed. Scope insertion time was 2 minutes. Scope withdrawal time was 8 minutes. The total duration of the procedure was 10 minutes. Findings: The perianal and digital rectal examinations were normal. The terminal ileum appeared normal. Four sessile polyps were found in the recto-sigmoid colon. The polyps were 5 to 8 mm in size. These polyps were removed with a cold snare. Resection and retrieval were complete. Verification of patient identification for the specimen was done by the physician and nurse using the patient's name, date and medical record number. Estimated blood loss was minimal. Non-bleeding external and internal hemorrhoids were found during retroflexion. The hemorrhoids were medium-sized. Impression: - The examined portion of the ileum was normal. - Four 5 to 8 mm polyps at the recto-sigmoid colon, removed with a cold snare. Resected and retrieved. - Non-bleeding external and internal hemorrhoids. Recommendation: - Patient has a contact number available for emergencies. The signs and symptoms of potential delayed complications were discussed with the patient. Return to normal activities tomorrow. Written discharge instructions were provided to the patient. - High fiber diet. - Continue present medications. - Use fiber, for example Citrucel, Fibercon, Konsyl or Metamucil. - Await pathology results. - Repeat colonoscopy in 5 years for surveillance based on pathology results. - Telephone GI clinic for pathology results in 2 weeks. - Return to primary care physician. - Return to GI clinic if persistent symptoms or new symptoms. Procedure Code(s): --- Professional --- 73631, Colonoscopy, flexible; with removal of tumor(s), polyp(s), or other lesion(s) by snare technique Diagnosis Code(s): --- Professional --- Z12.11, Encounter for screening for malignant neoplasm of colon K64.8, Other hemorrhoids K63.5, Polyp of colon CPT copyright 2019 [employer]. All rights reserved. The codes documented in this report are preliminary and upon flight instructor review may be revised to meet current compliance requirements. Augustin Ramirez MD Augustin Ramirez MD 02/14/2021 11:34:26 AM Electronically signed by Augustin Ramirez MD Number of Addenda: 0 Note Initiated On: 02/14/2021 10:51 AM Estimated Blood Loss: Estimated blood loss: none.
[2021-02-14 11:45] VITALS: BP 110/70
== END 2021-02-14 11:55 | disposition home or self-care (01) ==
LOC: M OPP 08:46
PROVIDERS: ATTEND Internal Medicine Gastroenterology
DX: Z12.11 Encounter for screening for malignant neoplasm of colon (principal); K63.5 Polyp of colon; K64.8 Other hemorrhoids; Z88.0 Allergy status to penicillin; Z88.1 Allergy status to other antibiotic agents
CPT/HCPCS: 45385; 88305; J2370

== ENCOUNTER → 2021-12-14 | Outpatient (REF) | payer OTHER ==
[~2021-12-14] MED LIST changes: -NS 1,000 ML IV ONE
[2021-12-14 11:47] LABS: BASO # 0.1 10^3/uL (0.0-0.2); BASO % 0.9 % (0.0-1.0); EOS # 0.3 10^3/uL (0.0-0.5); EOS % 4.2 % (0.0-3.0); HEMATOCRIT 43.4 % (36.0-47.0); HEMOGLOBIN 13.7 g/dl (12.0-15.5); LYMPH # 3.1 10^3/uL (1.5-5.0); LYMPH % 38.3 % (24.0-44.0); MEAN CORPUSCULAR HEMOGLOBIN 29.5 pg (27.0-33.0); MEAN CORPUSCULAR HGB CONC 31.6 g/dl (32.0-36.5); MEAN CORPUSCULAR VOLUME 93.3 fl (80.0-96.0); MONO # 0.7 10^3/uL (0.0-0.8); MONO % 9.1 % (2.0-8.0); NEUTROPHILS # 3.9 10^3/uL (1.5-8.5); PLATELET COUNT, AUTOMATED 346 10^3/uL (150-450); RED BLOOD COUNT 4.65 10^6/uL (4.00-5.40); WHITE BLOOD COUNT 8.2 10^3/uL (4.0-10.0)
[2021-12-14 13:59] LABS: ALBUMIN 3.8 GM/DL (3.2-5.2); BILIRUBIN,TOTAL 0.3 MG/DL (0.2-1.0); CALCIUM LEVEL 9.5 MG/DL (8.5-10.1); CHOLESTEROL RISK RATIO 3.189 (<5); CREATININE FOR GFR 1.05 MG/DL (0.55-1.30); FREE T4 1.03 NG/DL (0.76-1.46); GLOMERULAR FILTRATION RATE 57.7 (>51); POTASSIUM SERUM 4.7 MEQ/L (3.5-5.1); THYROID STIMULATING HORMONE 2.97 uIU/ML (0.358-3.740); TOTAL PROTEIN 7.3 GM/DL (6.4-8.2)
== END ==
LOC: M SFHCCLAY 07:22
PROVIDERS: ATTEND Nurse Practitioner Family
DX: E78.49 Other hyperlipidemia (principal); Z00.00 Encounter for general adult medical examination without abnormal findings

== ENCOUNTER → 2022-04-06 | Outpatient (CLI) | payer OTHER | LOC: M WHC 14:28 | PROVIDERS: ATTEND Advanced Practice Midwife | DX: Z12.31 Encounter for screening mammogram for malignant neoplasm of breast (principal) ==

== ENCOUNTER → 2022-12-18 | Outpatient (REF) | payer OTHER ==
[2022-12-18 12:00] LABS: BASO # 0.1 10^3/uL (0.0-0.2); BASO % 1.2 % (0.0-1.0); EOS # 0.2 10^3/uL (0.0-0.5); EOS % 3.7 % (0.0-3.0); HEMATOCRIT 40.2 % (36.0-47.0); HEMOGLOBIN 13.2 g/dl (12.0-15.5); LYMPH # 1.9 10^3/uL (1.5-5.0); LYMPH % 37.2 % (24.0-44.0); MEAN CORPUSCULAR HEMOGLOBIN 29.9 pg (27.0-33.0); MEAN CORPUSCULAR HGB CONC 32.8 g/dl (32.0-36.5); MEAN CORPUSCULAR VOLUME 91.2 fl (80.0-96.0); MONO # 0.5 10^3/uL (0.0-0.8); MONO % 8.9 % (2.0-8.0); NEUTROPHILS # 2.5 10^3/uL (1.5-8.5); NEUTROPHILS % 48.8 % (36.0-66.0); PLATELET COUNT, AUTOMATED 227 10^3/uL (150-450); RED BLOOD COUNT 4.41 10^6/uL (4.00-5.40); WHITE BLOOD COUNT 5.1 10^3/uL (4.0-10.0)
[2022-12-18 12:28] LABS: ALBUMIN 3.6 G/DL (3.2-5.2); ALKALINE PHOSPHATASE 77 U/L (46-116); ALT/SGPT 20 U/L (7.0-40); AST/SGOT 14 U/L (<34); BILIRUBIN,TOTAL 0.3 MG/DL (0.3-1.2); BLOOD UREA NITROGEN 17 MG/DL (9-23); CALCIUM LEVEL 8.7 MG/DL (8.5-10.1); CARBON DIOXIDE LEVEL 27 MMOL/L (20-31); CHLORIDE LEVEL 107 MMOL/L (98-107); CHOLESTEROL LEVEL 163 MG/DL (<200); CHOLESTEROL RISK RATIO 2.74 (<5); CREATININE FOR GFR 0.88 MG/DL (0.55-1.30); GLOMERULAR FILTRATION RATE > 60.0 (>51); GLUCOSE, FASTING 83 MG/DL (60-100); HDL CHOLESTEROL 59.3 MG/DL (>40); LDL CHOLESTEROL 88.5 MG/DL (<100); NON-HDL-C 103.7 MG/DL; PERCENT SATURATION 20.8 % (13.2-45.0); POTASSIUM SERUM 4.4 MMOL/L (3.5-5.1); SODIUM LEVEL 143 MMOL/L (136-145); TOTAL PROTEIN 6.5 G/DL (5.7-8.2); TRIGLYCERIDES LEVEL 76 MG/DL (<150)
[2022-12-18 12:30] LABS: FREE T4 1.01 NG/DL (0.89-1.76); THYROID STIMULATING HORMONE 2.182 uIU/ML (0.55-4.78); TOTAL 25(OH) VITAMIN D 28.9 NG/ML (20.0-100.0)
== END ==
LOC: M SFHCCLAY 07:32
PROVIDERS: ATTEND Nurse Practitioner Family
DX: Z00.00 Encounter for general adult medical examination without abnormal findings (principal); E78.49 Other hyperlipidemia; R53.83 Other fatigue

== ENCOUNTER → 2023-10-11 | Outpatient (REF) | payer OTHER ==
[2023-10-13 14:52] LABS: HPV APTIMA Not Detected (Not Detected)
== END ==
LOC: M PLALAB 15:49
PROVIDERS: ATTEND Advanced Practice Midwife
DX: Z12.4 Encounter for screening for malignant neoplasm of cervix (principal)
CPT/HCPCS: 87624; G0123

== ENCOUNTER → 2023-10-11 | Outpatient (CLI) | payer OTHER | LOC: M WHC 14:52 | PROVIDERS: ATTEND Advanced Practice Midwife | DX: Z12.31 Encounter for screening mammogram for malignant neoplasm of breast (principal) ==

== ENCOUNTER → 2024-01-01 | Outpatient (REF) | payer OTHER ==
[2024-01-01 11:29] LABS: BASO # 0.1 10^3/uL (0.0-0.2); BASO % 1.1 % (0.0-1.0); EOS # 0.2 10^3/uL (0.0-0.5); EOS % 4.3 % (0.0-3.0); HEMATOCRIT 38.9 % (36.0-47.0); HEMOGLOBIN 12.9 g/dl (12.0-15.5); LYMPH # 2.1 10^3/uL (1.5-5.0); LYMPH % 47.6 % (24.0-44.0); MEAN CORPUSCULAR HEMOGLOBIN 30.6 pg (27.0-33.0); MEAN CORPUSCULAR HGB CONC 33.2 g/dl (32.0-36.5); MEAN CORPUSCULAR VOLUME 92.4 fl (80.0-96.0); MONO # 0.4 10^3/uL (0.0-0.8); MONO % 9.7 % (2.0-8.0); NEUTROPHILS # 1.7 10^3/uL (1.5-8.5); NEUTROPHILS % 37.1 % (36.0-66.0); PLATELET COUNT, AUTOMATED 222 10^3/uL (150-450); RED BLOOD COUNT 4.21 10^6/uL (4.00-5.40); WHITE BLOOD COUNT 4.5 10^3/uL (4.0-10.0)
[2024-01-01 11:58] LABS: IRON (FE) 73 UG/DL (50-170); PERCENT SATURATION 26.4 % (13.2-45.0); TOTAL IRON BINDING CAPACITY 276 UG/DL (250-425)
[2024-01-01 12:00] LABS: ALBUMIN 3.6 G/DL (3.2-5.2); ALKALINE PHOSPHATASE 70 U/L (46-116); ALT/SGPT 21 U/L (7.0-40); AST/SGOT 17 U/L (<34); BILIRUBIN,TOTAL 0.4 MG/DL (0.3-1.2); BLOOD UREA NITROGEN 17 MG/DL (9-23); CALCIUM LEVEL 8.6 MG/DL (8.5-10.1); CARBON DIOXIDE LEVEL 28 MMOL/L (20-31); CHLORIDE LEVEL 109 MMOL/L (98-107); CHOLESTEROL LEVEL 187 MG/DL (<200); CHOLESTEROL RISK RATIO 2.79 (<5); CREATININE FOR GFR 0.84 MG/DL (0.55-1.30); FREE T4 1.05 NG/DL (0.89-1.76); GLOMERULAR FILTRATION RATE > 60.0 (>51); GLUCOSE, FASTING 85 MG/DL (60-100); HDL CHOLESTEROL 66.8 MG/DL (>40); LDL CHOLESTEROL 105.8 MG/DL (<100); NON-HDL-C 120.2 MG/DL; POTASSIUM SERUM 4.3 MMOL/L (3.5-5.1); SODIUM LEVEL 139 MMOL/L (136-145); THYROID STIMULATING HORMONE 2.907 uIU/ML (0.55-4.78); TOTAL PROTEIN 6.7 G/DL (5.7-8.2); TRIGLYCERIDES LEVEL 72 MG/DL (<150)
[2024-01-01 12:01] LABS: TOTAL 25(OH) VITAMIN D 40.4 NG/ML (20.0-100.0)
== END ==
LOC: M SFHCCLAY 08:04
PROVIDERS: ATTEND Nurse Practitioner Family
DX: Z00.00 Encounter for general adult medical examination without abnormal findings (principal); E78.49 Other hyperlipidemia; R53.83 Other fatigue

== ENCOUNTER → 2024-01-01 | Outpatient (CLI) | payer OTHER | LOC: M CLY 08:09 | PROVIDERS: ATTEND Nurse Practitioner Family | DX: M47.812 Spondylosis without myelopathy or radiculopathy, cervical region (principal) ==

== ENCOUNTER → 2024-12-04 | Outpatient (CLI) | payer OTHER | LOC: M WHC 14:53 | PROVIDERS: ATTEND Advanced Practice Midwife | DX: Z12.31 Encounter for screening mammogram for malignant neoplasm of breast (principal) ==

== ENCOUNTER → 2025-01-01 | Outpatient (REF) | payer OTHER ==
[2025-01-01 12:40] LABS: IRON (FE) 67.0 UG/DL (50-170)
[2025-01-01 12:41] LABS: PERCENT SATURATION 25.0 % (13.2-45.0)
[2025-01-01 12:42] LABS: ALT/SGPT 25.0 U/L (7.0-40); AST/SGOT 22.0 U/L (<34); CALCIUM LEVEL 9.5 MG/DL (8.5-10.1); CARBON DIOXIDE LEVEL 25.0 MMOL/L (20-31); CHLORIDE LEVEL 107.0 MMOL/L (98-107); CHOLESTEROL LEVEL 188.0 MG/DL (<200); CHOLESTEROL RISK RATIO 2.94 (<5); CREATININE FOR GFR 0.84 MG/DL (0.55-1.30); GLOMERULAR FILTRATION RATE 80.0 (>51); LDL CHOLESTEROL 110.0 MG/DL (<100); NON-HDL-C 124.2 MG/DL; POTASSIUM SERUM 4.0 MMOL/L (3.5-5.1); SODIUM LEVEL 143.0 MMOL/L (136-145); TRIGLYCERIDES LEVEL 71.0 MG/DL (<150)
[2025-01-01 12:43] LABS: BASO # 0.1 10^3/uL (0.0-0.2); BASO % 1.3 % (0.0-1.0); EOS # 0.1 10^3/uL (0.0-0.5); EOS % 2.9 % (0.0-3.0); LYMPH # 1.8 10^3/uL (1.5-5.0); LYMPH % 38.0 % (24.0-44.0); MONO # 0.4 10^3/uL (0.0-0.8); MONO % 9.0 % (2.0-8.0); NEUTROPHILS # 2.3 10^3/uL (1.5-8.5); NEUTROPHILS % 48.6 % (36.0-66.0); PLATELET COUNT, AUTOMATED 205 10^3/uL (150-450)
[2025-01-01 13:09] LABS: FREE T4 1.18 NG/DL (0.89-1.76)
[2025-01-01 13:10] LABS: TOTAL 25(OH) VITAMIN D 43.0 NG/ML (20.0-100.0)
[2025-01-09 14:52] LABS: IMMUNOGLOBULIN A CELIAC 295 mg/dL (47-310); t-TRANSGLUTAMINASE(tTG) IgA < 1.0 U/mL (<15.0); t-TRANSGLUTAMINASE(tTG) IgG < 1.0 U/mL (<15.0)
== END ==
LOC: M SFHCCLAY 08:04
PROVIDERS: ATTEND Nurse Practitioner Family
DX: Z00.00 Encounter for general adult medical examination without abnormal findings (principal); E78.49 Other hyperlipidemia; R53.83 Other fatigue; R14.0 Abdominal distension (gaseous)

== ENCOUNTER → 2025-03-16 | Outpatient (CLI) | payer OTHER ==
[~2025-03-16] MED LIST changes: +ISOVUE-370 76% 100 ML VIAL As Ordered ONE
== END ==
LOC: M RAD 09:21
PROVIDERS: ATTEND Internal Medicine Gastroenterology
DX: R63.4 Abnormal weight loss (principal); K57.90 Diverticulosis of intestine, part unspecified, without perforation or abscess without bleeding

== ENCOUNTER 2025-04-21 06:57 | Day surgery (SDC) | payer OTHER ==
[~2025-04-21] VITALS: Ht 167.6 cm; Wt 57.1 kg
[~2025-04-21 06:57] MED LIST changes: +IMMU1CHW PO; -ISOVUE-370 76% 100 ML VIAL As Ordered ONE; +LIDOCAINE 2% 100 MG/5 ML SDV (FOR ANES.) As Ordered ONE; +OMEG100011 PO; +THERTAB52 PO; +VITA200032 PO; +XALA0.007 OU
[2025-04-21 07:45] VITALS: TEMP 97.3
[2025-04-21 08:01] VITALS: BP 101/61; O2SAT 100
== END 2025-04-21 08:09 | disposition home or self-care (01) ==
LOC: M OPP 06:57
PROVIDERS: ATTEND Internal Medicine Gastroenterology
DX: K57.30 Diverticulosis of large intestine without perforation or abscess without bleeding (principal); R63.4 Abnormal weight loss; Z88.0 Allergy status to penicillin; Z88.1 Allergy status to other antibiotic agents; Z72.0 Tobacco use